=== PATIENT | male | born 2000 | race Caucasian/White ===

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

== ENCOUNTER 2018-04-29 17:49 | Emergency (ER) | payer MEDICAID ==
[~2018-04-29] VITALS: Ht 167.6 cm; Wt 101.2 kg
[2018-04-29 17:50] VITALS: BP_SYST 111
[2018-04-29 18:20] VITALS: BP_SYST 111
== END 2018-04-29 18:20 | disposition home or self-care (01) ==
LOC: SED 17:49
DX: S09.90XA Unspecified injury of head, initial encounter (principal); Z88.6 Allergy status to analgesic agent; W09.8XXA Fall on or from other playground equipment, initial encounter; Y93.44 Activity, trampolining; Y92.89 Other specified places as the place of occurrence of the external cause; Y99.8 Other external cause status
CPT/HCPCS: 99281

== ENCOUNTER 2018-05-27 22:25 | Emergency (ER) | payer MEDICAID ==
[~2018-05-27] VITALS: Ht 167.6 cm; Wt 101.2 kg
[2018-05-27 22:38] VITALS: BP_SYST 122
== END 2018-05-28 01:35 | disposition left against medical advice (07) ==
LOC: SED 22:25
DX: R11.2 Nausea with vomiting, unspecified (principal); M79.10 Myalgia, unspecified site; Z53.21 Procedure and treatment not carried out due to patient leaving prior to being seen by health care provider

== ENCOUNTER 2018-09-05 16:25 | Emergency (ER) | payer MEDICAID ==
[~2018-09-05] VITALS: Ht 167.6 cm; Wt 106.6 kg
[2018-09-05 16:33] VITALS: BP_SYST 128
[2018-09-05 17:25] VITALS: BP_SYST 120
== END 2018-09-05 17:25 | disposition home or self-care (01) ==
LOC: SED 16:25
DX: B86 Scabies (principal); Z88.6 Allergy status to analgesic agent
CPT/HCPCS: 99283

== ENCOUNTER 2024-01-01 21:44 | Emergency (ER) | payer MEDICAID ==
[~2024-01-01] VITALS: Ht 170.2 cm; Wt 122.5 kg
[2024-01-01 22:03] VITALS: BP_SYST 132; PULSE 82; RESP 19; TEMP 98; O2SAT 97
[2024-01-01 22:59] LABS: BILIRUBIN,URINE NEGATIVE (NEGATIVE); BLOOD, URINE NEGATIVE (NEGATIVE); CLARITY/URINE CLEAR (CLEAR); COLOR,URINE YELLOW (YELLOW); GLUCOSE,URINE NEGATIVE (NEGATIVE); KETONES,URINE NEGATIVE (NEGATIVE); LEUKOCYTE ESTERASE ,URINE NEGATIVE (NEGATIVE); NITRITE, URINE NEGATIVE (NEGATIVE); PROTEIN URINE NEGATIVE (NEGATIVE); UROBILINOGEN,URINE 0.2 (0.2-1.0)
[2024-01-01 23:20] LABS: BASOPHILS # (AUTO) 0.1 K/uL (0.0-0.2); BASOPHILS % (AUTO) 0.8 % (0.0-2.0); EOSINOPHILS # (AUTO) 0.4 K/uL (0.0-0.4); EOSINOPHILS % (AUTO) 4.7 % (0.0-4.0); HEMATOCRIT 46.3 % (36-54); HEMOGLOBIN 16.1 g/dL (14.0-18.0); LYMPHOCYTES # (AUTO) 2.5 K/uL (1.0-5.5); LYMPHOCYTES % (AUTO) 33.5 % (20.5-51.5); MEAN CORPUSCULAR HEMOGLOBIN 30 pg (27-31); MEAN CORPUSCULAR HGB CONC 35 % (32-36); MEAN CORPUSCULAR VOLUME 88 fL (79.0-98.0); MONOCYTES # (AUTO) 0.7 K/uL (0.0-1.0); MONOCYTES % (AUTO) 8.8 % (1.7-9.3); NEUTROPHILS # (AUTO) 3.9 K/uL (1.8-7.7); NEUTROPHILS % (AUTO) 52.2 % (40.0-70.0); PLATELET COUNT (AUTO) 254 K/uL (130-430); RED CELL DISTRIBUTION WIDTH 13.6 % (9.0-15.0); WHITE BLOOD COUNT (AUTO) 7.5 K/uL (4.8-10.8)
[2024-01-01 23:36] LABS: ALBUMIN 3.3 g/dL (3.4-4.8); CALCIUM 8.5 mg/dL (8.4-11.0); CREATININE 1.19 mg/dL (0.55-1.30); POTASSIUM 3.7 mmol/L (3.5-5.1); TOTAL BILIRUBIN 0.6 mg/dL (0.0-1.0)
[2024-01-01] MEDS ORDERED: NITR-85 PO (23:54)
[2024-01-01 23:59] VITALS: BP_SYST 132; PULSE 82; RESP 19; TEMP 98; O2SAT 97
== END 2024-01-01 23:59 | disposition home or self-care (01) ==
LOC: SED 21:44
DX: R30.0 Dysuria (principal); R74.01 Elevation of levels of liver transaminase levels; M54.50 Low back pain, unspecified; R06.02 Shortness of breath; Z88.6 Allergy status to analgesic agent; Z79.899 Other long term (current) drug therapy
CPT/HCPCS: 36415; 80053; 81001; 81003; 85025; 99283